=== PATIENT | female | born 1980 | race African-American/Black ===

== ENCOUNTER 2020-05-12 15:04 | Emergency (ER) | payer OTHER ==
--- NOTE | 2020-05-12 17:13 | EDPHYS ---
Physician Documentation [facility] Name: Marjan Griffith Age: 39 yrs Sex: Female : 1980 Arrival Date: 05/12/2020 Time: 15:08 Bed 11 Private MD: ED Physician Jose Fu HPI: 05/12 17:10 This 39 yrs old Black Female presents to ER via Ambulatory with complaints of Sinus kb Congestion. 17:10 The patient or guardian reports The patient or guardian reports sinus congestion and kb pain, rhinorrhea, fever. Onset: The symptoms/episode began/occurred 3 day(s) ago. Severity of symptoms: At their worst the symptoms were moderate, in the emergency department the symptoms are unchanged. Modifying factors: The symptoms are alleviated by nothing, the symptoms are aggravated by nothing. Associated signs and symptoms: Pertinent positives: fever, rhinorrhea, Pertinent negatives: chest pain, diarrhea, ear ache, nausea, sore throat, vomiting. The patient has not experienced similar symptoms in the past. The patient has not recently seen a physician. Pt states she thought she had a sinus infection. c/o headache, fever, sinus pain and congestion, runny nose. States she found out today that someone she was with last weekend is positive for COVID. . Historical: - Allergies: 15:17 Daypro; ll1 - PSHx: 15:17 None; ll1 - Immunization history:: Flu vaccine is not up to date. - Social history:: Smoking status: Patient denies any tobacco usage or history of. Patient uses alcohol, only on a social basis. Patient/guardian denies using street drugs. ROS: 17:08 Cardiovascular: Negative for chest pain, palpitations, and edema, Respiratory: Negative kb for shortness of breath, cough, wheezing, and pleuritic chest pain, Abdomen/GI: Negative for abdominal pain, nausea, vomiting, diarrhea, and constipation, Back: Negative for injury and pain, MS/Extremity: Negative for injury and deformity, Skin: Negative for injury, rash, and discoloration. 17:08 Constitutional: Positive for body aches, chills, fatigue, fever, malaise. 17:08 ENT: Positive for rhinorrhea, sinus congestion, sinus pain. 17:08 Neuro: Positive for headache. Exam: 17:08 Constitutional: This is a well developed, well nourished patient who is awake, alert, kb and in no acute distress. Head/Face: Normocephalic, atraumatic. Neck: Trachea midline, no thyromegaly or masses palpated, and no cervical lymphadenopathy. Supple, full range of motion without nuchal rigidity, or vertebral point tenderness. No Meningismus. Chest/axilla: Normal chest wall appearance and motion. Nontender with no deformity. No lesions are appreciated. Cardiovascular: Regular rate and rhythm with a normal S1 and S2. No gallops, murmurs, or rubs. Normal PMI, no JVD. No pulse deficits. Respiratory: Lungs have equal breath sounds bilaterally, clear to auscultation and percussion. No rales, rhonchi or wheezes noted. No increased work of breathing, no retractions or nasal flaring. Abdomen/GI: Soft, non-tender, with normal bowel sounds. No distension or tympany. No guarding or rebound. No evidence of tenderness throughout. Back: No spinal tenderness. No costovertebral tenderness. Full range of motion. Skin: Warm, dry with normal turgor. Normal color with no rashes, no lesions, and no evidence of cellulitis. MS/ Extremity: Pulses equal, no cyanosis. Neurovascular intact. Full, normal range of motion. Neuro: Awake and alert, GCS 15, oriented to person, place, time, and situation. Cranial nerves II-XII grossly intact. Motor strength 5/5 in all extremities. Sensory grossly intact. Cerebellar exam normal. Normal gait. Vital Signs: 15:16 BP 125 / 94; Pulse 98; Resp 18; Temp 98.3; Pulse Ox 100% ; Pain 8/10; ll1 MDM: 16:44 Patient medically screened. kb 17:04 Data reviewed: vital signs, nurses notes. Data interpreted: Pulse oximetry: on room air kb is 100 %. Interpretation: normal. Counseling: I had a detailed discussion with the patient and/or guardian regarding: the historical points, exam findings, and any diagnostic results supporting the discharge/admit diagnosis, the need for outpatient follow up, a family practitioner, to return to the emergency department if symptoms worsen or persist or if there are any questions or concerns that arise at home. 05/12 17:05 Order name: SANTOS pj Administered Medications: No medications were administered Disposition: 19:35 Co-signature as Attending Physician, Jose Fu MD. [email or web address] Disposition: 05/12/20 17:12 Discharged to Home. Impression: Acute sinusitis. - Condition is Stable. - Discharge Instructions: Sinusitis, Adult, [id number], COVID-19. - Medication Reconciliation Form, Thank You Letter, Antibiotic Education, Prescription Opioid Use form. - Follow up: Emergency Department; When: As needed; Reason: Worsening of condition. Follow up: Private Physician; When: 2 - 3 days; Reason: Recheck today's complaints, Continuance of care, Re-evaluation by your physician. Addendum: 05/15/2020 08:35 Addendum: Contacted pt at 0835, notified of positive COVID test, answered questions, r n [facility] will contact them with further instructions, patient feeling better. . Signatures: Dispatcher [employer] EDMS Nany Green, UPSETTER HELPER-C UPSETTER HELPER-Ckb Karlo Hoff MD MD rn Smirch, Shelby, RN RN ss Lewis, Lynsay, RN RN [facility] Jose Fu MD MD 7 Corrections: (The following items were deleted from the chart) 05/12 17:30 17:12 05/12/2020 17:12 Discharged to Home. Impression: Acute sinusitis. Condition is ss Stable. Forms are Medication Reconciliation Form, Thank You Letter, Antibiotic Education, Prescription Opioid Use. Follow up: Emergency Department; When: As needed; Reason: Worsening of condition. Follow up: Private Physician; When: 2 - 3 days; Reason: Recheck today's complaints, Continuance of care, Re-evaluation by your physician. kb
--- NOTE | 2020-05-12 17:13 | ER ---
Nurse's Notes [facility] Name: Marjan Griffith Age: 39 yrs Sex: Female : 1980 Arrival Date: 05/12/2020 Time: 15:08 Bed 11 Private MD: Diagnosis: Acute sinusitis Presentation: 05/12 15:16 Chief complaint: Patient states: Nasal congestion, MCGREGOR, fever for 4 days. Fever 101 at ll1 home. No N/V/D. Coronavirus screen: Surgical mask placed on patient. Patient moved to private room, placed in contact and droplet isolation with eye protection until further assessment. Patient denies a cough. Patient denies shortness of breath or difficulty breathing. Patient reports a measured and/or subjective temperature greater than 100.4F. Patient denies travel on a cruise ship or to a country the [facility] currently lists as an affected area. Patient reports contact with known and/or suspected case of COVID-19. Ebola Screen: Patient denies travel to an Ebola-affected area in the 21 days before illness onset. Initial Sepsis Screen: Does the patient meet any 2 criteria? HR > 90 bpm. No. Patient's initial sepsis screen is negative. Risk Assessment: Do you want to hurt yourself or someone else? Patient reports no desire to harm self or others. Onset of symptoms was May 09, 2020. 15:16 Method Of Arrival: Ambulatory ll1 15:16 Acuity: GABRIELLA 3 ll1 Historical: - Allergies: 15:17 Daypro; ll1 - PSHx: 15:17 None; ll1 - Immunization history:: Flu vaccine is not up to date. - Social history:: Smoking status: Patient denies any tobacco usage or history of. Patient uses alcohol, only on a social basis. Patient/guardian denies using street drugs. Screenin:45 Abuse screen: Denies threats or abuse. Denies injuries from another. Nutritional ss screening: No deficits noted. Tuberculosis screening: Never had TB. Fall Risk None identified. Assessment: 16:45 General: Appears in no apparent distress. comfortable, Behavior is calm, cooperative, ss Reports fever for 12-24 hours, feeling ill for 12-24 hours, Denies fatigue, chills. Pain: Complains of pain in headache Pain currently is 8 out of 10 on a pain scale. Quality of pain is described as aching. Neuro: Level of Consciousness is awake, alert, obeys commands, Oriented to person, place, time, situation. Cardiovascular: Capillary refill < 3 seconds is brisk in bilateral fingers. Respiratory: Airway is patent Respiratory effort is even, unlabored, Respiratory pattern is regular, symmetrical. GI: Patient currently denies diarrhea, nausea, vomiting. EENT: Reports nasal congestion. Derm: Skin is pink, warm \T\ dry. normal. Musculoskeletal: Circulation, motion, and sensation intact. Range of motion: intact in all extremities, Swelling absent. Vital Signs: 15:16 BP 125 / 94; Pulse 98; Resp 18; Temp 98.3; Pulse Ox 100% ; Pain 8/10; ll1 ED Course: 15:08 Patient arrived in ED. mr 15:17 Triage completed. ll1 15:18 Arm band placed on. ll1 15:18 Patient notified of wait time. ll1 16:43 Majo Knott RN is Primary Nurse. sv 16:44 Nany Green FNP-C is [facility]. kb 16:44 Jose Fu MD is Attending Physician. kb 16:45 Patient has correct armband on for positive identification. Bed in low position. Call ss light in reach. 17:29 No provider procedures requiring assistance completed. Patient did not have IV access ss during this emergency room visit. 05/13 14:50 Health Dept notified/ PUI # [id number]/ Michaelle in lab notified. eb Administered Medications: No medications were administered Outcome: 05/12 17:12 Discharge ordered by MD. kb 17:29 Discharged to home ambulatory. ss 17:29 Condition: good 17:29 Discharge instructions given to patient, Instructed on discharge instructions, follow up and referral plans. Demonstrated understanding of instructions, follow-up care. 17:30 Patient left the ED. ss Signatures: Nany Green FNP-C FNP-Majo Tejeda RN RN sv Katherine Hay Andria Harris RN RN ss Botello, Elizabeth eb Lewis, Lynsay, RN RN ll1
--- OUTSIDE RECORDS SUMMARY | 2020-05-12 17:23 | XMS REPORT | Continuity of Care Document ---
:1980 Author Organization [facility] [employer] Care Team Providers Name Role Phone [email or web address] Unavailable Un available Problems Problem Status Onset Classification Date Comments Sourc e Date Reported DX: Active Lenora st R10.11=RIGHT 9 UPPER QUADRANT PAIN, K5 Medications No Data Provided for This Section Allergies, Adverse Reactions, Alerts No Known Medication Allergies Immunizations No Data Provided for This Section Results No Data Provided for This Section Pathology Reports No Data Provided for This Section Diagnostic Reports Report Value Date Source Gallbladder scan HIDA w PROCEDURE INFORMATION: 12/04/2019 [facility] Exam: NM Hepatobiliary scan including gallbladder ejection fraction with pharmacological intervention Exam date and time: 12/04/2019 12:01 PM Age: 39 years old Clinical indication: Right upper quadrant pain a nd bloating for 3 months. TECHNIQUE: 7.2 mCi of technetium 99 M Choletec were injecte d intravenously followed by anterior planar imaging over the upper abdomen. 1.8 mcg of cholecystokinin were then given intravenously over 30 minutes followed by quantitative imaging over the gallbladder. The patient described mild righ t upper quadrant cramping during the cholecystokinin infusion. COMPARISON: No relevant prior studies available. FINDINGS: There is prompt uptake and excretion of activity by the liver with prompt visualization of the biliary tree, gallbladder and small bowel. The gallbladder ejection fraction is 87%. IMPRESSION: 1. 87% gallbladder ejection fraction. 2. Otherwise normal hepatobiliary scan. Ruddy Jha MD On 12/04/2019 13:11:41; FER-KO [id number] Consultation Notes No Data Provided for This Section Discharge Summaries No Data Provided for This Section History and Physicals No Data Provided for This Section Vital Signs No Data Provided for This Section Encounters Location Location Encounter Encounter Reason Attending ADM [place] Stat us Source Details Type Number For Provider Date Date [facility] [id number] Alec 12/04 12/05 ABDIEL Cristina /2019 [facility] Procedures No Data Provided for This Section Assessment and Plan No Data Provided for This Section Plan of Care No Data Provided for This Section Social History Social History Date Source Social History TypeResponse 12/05/2019 [facility] Family History No Data Provided for This Section Advance Directives No Data Provided for This Section Functional Status No Data Provided for This Section
--- OUTSIDE RECORDS SUMMARY | 2020-05-12 17:24 | XMS REPORT | Continuity of Care Document ---
:1980 Author Organization [facility] t Address [address] [place] [address] Care Team Providers Name Role Phone Jonnie Attending Clinician Problems Condition Condition Condition Status Onset Resolution Last Treating Co mments Source Name Details Category Date Date Treatment Clinician Date DX: Diagnosis Active 2018-112019-12-04 Mem oria R10.11=RIG 2-09 06:49:00 l HT UPPER DX: 00:00: [place] QUADRANT R10.11=RIG 00 PAIN, K5 HT UPPER QUADRANT PAIN, K5 Active 10/26/2019 [facility] Allergies, Adverse Reactions, Alerts This patient has no known allergies or adverse reactions. Medications This patient has no known medications. Procedures This patient has no known procedures. Encounters Start End Encounter Admission Attending Care Care Encounter Source Date/Time Date/Time Type Type Clinicians Facility Department ID 2019-12-04 2019-12-04 Outpatient TONIO Cristina [facility] [id number] 06:40:00 23:59:00 Alec 00 2019-12-04 2019-12-04 Outpatient [facility] [id number] MH 06:40:00 06:40:00 Pamela mahoney [facility] l Results This patient has no known results.
[2020-05-12 18:00] VITALS: BP 125/94; TEMP 98.3; O2SAT 100
== END 2020-05-12 17:30 | disposition home or self-care (01) ==
LOC: ER 15:04
DX: U07.1 COVID-19 (principal); J01.90 Acute sinusitis, unspecified; Z88.8 Allergy status to other drugs, medicaments and biological substances
CPT/HCPCS: 99281; U0001

== ENCOUNTER 2022-12-27 08:10 | Emergency (ER) | payer OTHER ==
--- OUTSIDE RECORDS SUMMARY | 2022-12-27 08:13 | XMS REPORT | Continuity of Care Document ---
:1980 Author Organization [facility] t Address [address] [place] [address] Care Team Providers Name Role Phone Alec Cristina Attending Clinician Problems Condition Condition Condition Status Onset Resolution Last Treating Co mments Source Name Details Category Date Date Treatment Clinician Date DX: DX: Diagnosis Active 2018-112019-12-04 Mem oria R10.11=RIG R10.11=RIG 2-09 06:49:00 l HT UPPER HT UPPER 00:00: [facility] QUADRANT QUADRANT 00 PAIN, K5 PAIN, K5 Active 10/26/2019 [facility] Allergies, Adverse Reactions, Alerts This patient has no known allergies or adverse reactions. Medications This patient has no known medications. Procedures This patient has no known procedures. Encounters Start End Encounter Admission Attending Care Care Encounter Source Date/Time Date/Time Type Type Clinicians Facility Department ID 2019-12-04 2019-12-05 Outpatient Counts include 234 beds at the [facility] [id number] Memoria 12:40:00 05:59:00 r [facility] 2019-12-04 2019-12-04 Outpatient TONIO Cristina [facility] [id number] 06:40:00 23:59:00 Alec 00 2019-12-04 2019-12-04 Outpatient [facility] [id number] MH 06:40:00 06:40:00 [facility] l Results This patient has no known results.
[2022-12-27] MEDS ORDERED: NA CHLORIDE 0.9% 1,000 ML ONE (08:41)
[2022-12-27 08:49] LABS: Absolute Lymphocytes (CBC) 2.2 K/uL (0.7-4.9); Hematocrit 34.8 % (36.0-45.0); Lymphocytes % 31.6 % (15.3-44.8); MCV 86.8 fL (80-100); MPV 8.3 fL (7.6-11.3); RBC Red Blood Cell Count 4.01 M/uL (3.86-4.86)
[2022-12-27 08:49] LABS: Urine Blood Negative (Negative); Urine Glucose Negative (Negative); Urine Protein Negative (Negative); Urine Specific Gravity 1.015 (1.005-1.030); Urine pH 5.5 (5.0-7.0)
[2022-12-27 08:57] LABS: Urine Bacteria None Seen /HPF (<20); Urine Mucus Slight /HPF (None Seen); Urine RBC <5 /HPF (None Seen)
[2022-12-27 09:04] LABS: Albumin 3.1 g/dL (3.4-5.0); Bilirubin Total 0.2 mg/dL (0.2-1.0); Potassium 3.6 mmol/L (3.5-5.1); Protein, Total 7.2 g/dL (6.4-8.2)
[2022-12-27 09:05] LABS: Urine Specific Gravity/Preg 1.015 (1.005-1.030)
--- NOTE | 2022-12-27 10:10 | RAD REPORT ---
EXAM DESCRIPTION: CT - Abdomen Pelvis W Contrast - 12/27/2022 9:56 am CLINICAL HISTORY: Right lower quadrant abdominal pain. History of positive test 2 weeks ag o, blood were negative. Fibroids on recent ultrasound. COMPARISON: Pelvic ultrasound 12/19/2022 TECHNIQUE: Biphasic, helical CT imaging of the abdomen and pelvis was performed following administra tion of 110 mL split dose Isovue-[address] scans are performed using dose optimization technique as appropriate and may include automated exposure control or mA/KV adjustment according to patient size. FINDINGS: No suspicious findings in the lung bases. The liver, spleen, and pancreas show no suspicious findings. Gallbladder and biliary tree are also wi thout suspicious finding. Symmetric renal contour is seen with no hydronephrosis or suspicious renal mass. Evaluation for renal calculi is limited given early excretion of contrast throughout the urinary tract. No dilated bowel loops or bowel wall thickening. No free air, free fluid or inflammatory stranding. T he appendix is visualized and unremarkable. No hernia, mass or bulky lymphadenopathy. The urinary freeman dder is without significant finding. Bulky contour of the uterus particularly along the posterior wall. Known uterine fibroids were better evaluated on the recent pelvic ultrasound. No suspicious bony findings. IMPRESSION: Bulky contour of the uterus particularly along the posterior wall, related to known fibr oids better evaluated on recent pelvic ultrasound. No other acute or suspicious findings within the abdomen and pelvis.
--- NOTE | 2022-12-27 10:22 | ER ---
Nurse's Notes [facility] Name: Marjan Griffith Age: 42 yrs Sex: Female : 1980 Arrival Date: 12/27/2022 Time: 08:12 Bed 8 Private MD: Diagnosis: Lower abdominal pain, unspecified Presentation: 12/27 08:21 Chief complaint: Patient states: "I had a positive test a couple weeks ago aa5 but then they did the blood work test and it was negative, I also had an ultrasound and my doctor just said it showed fibroids". pt c/o RLQ pain that began this morning, reports nausea, denies vomiting. Denies vaginal bleeding. 08:21 Coronavirus screen: At this time, the client does not indicate any symptoms associated aa5 with coronavirus-19. Ebola Screen: Patient denies travel to an Ebola-affected area in the 21 days before illness onset. Initial Sepsis Screen: Does the patient meet any 2 criteria? HR > 90 bpm. Does the patient have a suspected source of infection? No. Patient's initial sepsis screen is negative. Risk Assessment: Do you want to hurt yourself or someone else? Patient reports no desire to harm self or others. Onset of symptoms was December 2022. 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 - Social history:: Smoking status: Patient denies any tobacco usage or history of. Screenin:30 [facility] ED Fall Risk Assessment (Adult) History of falling in the last 3 months, kc6 including since admission No falls in past 3 months (0 pts) Confusion or Disorientation No (0 pts) Intoxicated or Sedated No (0 pts) Impaired Gait No (0 pts) Mobility Assist Device Used No (0 pt) Altered Elimination No (0 pt) Score/Fall Risk Level 0 - 2 = Low Risk Oriented to surroundings, Maintained a safe environment, Educated pt \\T\\ family on fall prevention, incl call for assistance when getting out of bed, Assessed \\T\\ reinforced patient's understanding of fall precautions, Hourly rounding (assess needs \\T\\ fall precautionary measures) done. Abuse screen: Denies threats or abuse. Denies injuries from another. Nutritional screening: No deficits noted. Tuberculosis screening: No symptoms or risk factors identified. Assessment: 08:28 General: Appears in no apparent distress. comfortable, Behavior is calm, cooperative, kc6 appropriate for age. Pain: Complains of pain in right lower quadrant Pain does not radiate. Pain currently is 4 out of 10 on a pain scale. Quality of pain is described as sharp, Is continuous, Alleviated by nothing. Also complains of no other associated symptoms. Neuro: Mixon Agitation-Sedation Scale (RASS): 0 - Alert and Calm Level of Consciousness is awake, alert, obeys commands, Oriented to person, place, time, situation, Appropriate for age. Cardiovascular: Capillary refill < 3 seconds. Respiratory: Airway is patent Trachea midline Respiratory effort is even, unlabored, Respiratory pattern is regular, symmetrical. GI: Abdomen is flat, non-distended, Bowel sounds present X 4 quads. Abd is soft X 4 quads Abdomen is tender to palpation in right lower quadrant Reports nausea, Patient currently denies diarrhea, vomiting. : No signs and/or symptoms were reported regarding the genitourinary system. EENT: No signs and/or symptoms were reported regarding the EENT system. Derm: No signs and/or symptoms reported regarding the dermatologic system. Skin is intact, Skin is pink, warm \\T\\ dry. Musculoskeletal: No signs and/or symptoms reported regarding the musculoskeletal system. Circulation, motion, and sensation intact. Capillary refill < 3 seconds, Range of motion: intact in all extremities. 09:28 Reassessment: Patient appears in no apparent distress at this time. No changes from kc6 previously documented assessment. Patient and/or family updated on plan of care and expected duration. Pain level reassessed. Patient is alert, oriented x 3, equal unlabored respirations, skin warm/dry/pink. 10:28 Reassessment: Patient appears in no apparent distress at this time. No changes from kc6 previously documented assessment. Patient and/or family updated on plan of care and expected duration. Pain level reassessed. Patient is alert, oriented x 3, equal unlabored respirations, skin warm/dry/pink. Vital Signs: 08:21 BP 131 / 78; Pulse 94; Resp 16 S; Temp 99.0(TE); Pulse Ox 99% on R/A; Weight 98.43 kg aa5 (R); Height 5 ft. 6 in. (167.64 cm) (R); 09:15 BP 146 / 90; Pulse 89; Resp 18 S; Pulse Ox 100% ; kc6 08:21 Body Mass Index 35.02 (98.43 kg, 167.64 cm) aa5 ED Course: 08:12 Patient arrived in ED. am2 08:21 Juan Madsen PA is PHCP. cp 08:21 Manoj Austin MD is Attending Physician. cp 08:21 Zarina Doty, NELLIE is Primary Nurse. kc6 08:21 Arm band placed on. aa5 08:30 Triage completed. aa5 08:30 Patient has correct armband on for positive identification. Bed in low position. Call kc6 light in reach. Side rails up X 1. Adult w/ patient. 08:38 Inserted saline lock: 20 gauge in left antecubital area, using aseptic technique. kc6 ,using aseptic technique. placed by Margaret Kevin RN Blood collected. 08:48 Quantitative Hcg Sent. kc6 08:49 CBC with Diff Sent. kc6 08:49 CMP Sent. kc6 08:49 Lipase Sent. kc6 08:49 Urine Microscopic Only Sent. kc6 09:58 CT Abd/Pelvis - IV Contrast Only In Process Unspecified. EDMS 11:03 No provider procedures requiring assistance completed. IV discontinued, intact, kc6 bleeding controlled, No redness/swelling at site. Pressure dressing applied. Administered Medications: 08:48 Drug: NS 0.9% 1000 ml Route: IV; Rate: 1 bolus; Site: left antecubital; kc6 10:41 Follow up: Response: No adverse reaction; IV Status: Completed infusion; IV Intake: kc6 1000ml 10:19 Drug: Dicyclomine 20 mg Route: IM; Site: right gluteus; ap3 11:04 Follow up: Response: No adverse reaction kc6 Medication: 11:04 VIS not applicable for this client. kc6 Intake: 10:41 IV: 1000ml; Total: 1000ml. kc6 Outcome: 10:21 Discharge ordered by MD. cp 11:03 Discharged to home ambulatory, with family. kc6 11:03 Condition: stable 11:03 Discharge instructions given to patient, Instructed on discharge instructions, follow up and referral plans. Demonstrated understanding of instructions, follow-up care. 11:04 Patient left the ED. kc6 Signatures: Dispatcher [employer] EDMS Julieth Hinkle RN RN aa5 Juan Madsen PA PA cp Moreno, Amanda am2 Prokisch, Amanda, RN RN ap3 Zarina Doty RN RN kc6 Corrections: (The following items were deleted from the chart) 08: 08:30 PMHx: None; aa5 aa5
--- NOTE | 2022-12-27 10:22 | EDPHYS ---
Physician Documentation [facility] Name: Marjan Griffith Age: 42 yrs Sex: Female : 1980 Arrival Date: 12/27/2022 Time: 08:12 Bed 8 Private MD: ED Physician Manoj Austin HPI: 12/27 08:40 This 42 yrs old Black Female presents to ER via Ambulatory with complaints of Abdominal cp Pain - RLQ sharp. 08:40 The patient presents with abdominal pain right lower quadrant. Onset: The cp symptoms/episode began/occurred this morning. The symptoms radiate to the right flank. Associated signs and symptoms: Pertinent negatives: constipation, diarrhea, dysuria, fever, hematuria. 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 - Social history:: Smoking status: Patient denies any tobacco usage or history of. ROS: 08:45 Constitutional: Negative for body aches, chills, fever, poor PO intake. cp 08:45 Cardiovascular: Negative for chest pain, edema, palpitations. cp 08:45 Respiratory: Negative for cough, shortness of breath, wheezing. 08:45 Abdomen/GI: Positive for abdominal pain, of the suprapubic area and right lower quadrant and right flank, Negative for vomiting, diarrhea, constipation. 08:45 : Negative for urinary symptoms. 08:45 Neuro: Negative for altered mental status, dizziness, headache, numbness, syncope, weakness. 08:45 All other systems are negative. Exam: 08:50 Constitutional: The patient appears in no acute distress, alert, awake, comfortable, cp non-toxic, well developed, well nourished. 08:50 Head/Face: Normocephalic, atraumatic. cp 08:50 Eyes: Periorbital structures: appear normal, Conjunctiva: normal, no exudate, no injection, Sclera: no appreciated abnormality, Lids and lashes: appear normal, bilaterally. 08:50 ENT: External ear(s): are unremarkable, Nose: is normal, Mouth: Lips: moist, Oral mucosa: pink and intact, moist, Posterior pharynx: is normal, airway is patent, no erythema, no exudate. 08:50 Chest/axilla: Inspection: normal. 08:50 Cardiovascular: Rate: normal, Rhythm: regular. 08:50 Respiratory: the patient does not display signs of respiratory distress, Respirations: normal, no use of accessory muscles, no retractions, labored breathing, is not present, Breath sounds: are clear throughout, no decreased breath sounds, no stridor, no wheezing. 08:50 Abdomen/GI: Inspection: abdomen appears normal, Bowel sounds: active, all quadrants, Palpation: soft, in all quadrants, mild abdominal tenderness, in the suprapubic area and right lower quadrant, rebound tenderness, is not appreciated, involuntary guarding, is not appreciated. 08:50 Back: CVA tenderness, is absent. Vital Signs: 08:21 BP 131 / 78; Pulse 94; Resp 16 S; Temp 99.0(TE); Pulse Ox 99% on R/A; Weight 98.43 kg aa5 (R); Height 5 ft. 6 in. (167.64 cm) (R); 09:15 BP 146 / 90; Pulse 89; Resp 18 S; Pulse Ox 100% ; kc6 08:21 Body Mass Index 35.02 (98.43 kg, 167.64 cm) aa5 MDM: 08:22 Patient medically screened. cp 09:00 Differential diagnosis: appendicitis, bowel obstruction, cholecystitis, Cholelithiasis, cp diverticulitis, non-specific abd pain, Pyelonephritis, Ureterolithiasis, urinary tract infection. 10:20 Data reviewed: vital signs, nurses notes, lab test result(s), radiologic studies, CT cp scan. 10:20 Consideration of Admission/Observation Escalation of care including cp admission/observation considered. Test considered but Not performed: Ultrasound pelvis. Care significantly affected by the following chronic conditions: Hypertension. Counseling: I had a detailed discussion with the patient and/or guardian regarding: the historical points, exam findings, and any diagnostic results supporting the discharge/admit diagnosis, lab results, radiology results, the need for outpatient follow up, an OB/Gyne specialist, to return to the emergency department if symptoms worsen or persist or if there are any questions or concerns that arise at home. Response to treatment: the patient's symptoms have markedly improved after treatment, and as a result, I will discharge patient. Special discussion: Based on the patient's Hx, exam, and Dx evaluation, there is no indication for emergent surgery or inpatient Tx. It is understood by the patient/guardian that if the Sx's persist or worsen they need to return immediately for re-evaluation. 12/27 08:34 Order name: CBC with Diff; Complete Time: 09:17 cp 12/27 10:12 Interpretation: Normal except: HGB 11.6; HCT 34.8. cp 12/27 08:34 Order name: CMP; Complete Time: 09:17 cp 12/27 10:12 Interpretation: Normal except: CL 109; GLUC 115; ALB 3.1; GLOB 4.1; A/G 0.8. cp 12/27 08:34 Order name: Lipase; Complete Time: 09:17 cp 12/27 08:34 Order name: Urine Microscopic Only; Complete Time: 09:17 cp 12/27 08:34 Order name: Quantitative Hcg; Complete Time: 09:17 cp 12/27 08:50 Order name: Urine Dipstick-Ancillary; Complete Time: 09:17 EDMS 12/27 10:12 Interpretation: Normal except: UESTR 1+. cp 12/27 08:34 Order name: IV Saline Lock; Complete Time: 08:38 cp 12/27 08:34 Order name: Labs collected and sent; Complete Time: 08:48 cp 12/27 08:34 Order name: Urine Dipstick-Ancillary (obtain specimen); Complete Time: 08:48 cp 12/27 08:34 Order name: Urine Test (obtain specimen); Complete Time: 08:49 cp 12/27 09:02 Order name: Urine --Ancillary (enter results); Complete Time: 09:17 em1 12/27 09:19 Order name: CT Abd/Pelvis - IV Contrast Only; Complete Time: 10:11 cp 12/27 10:12 Interpretation: Report reviewed. cp Administered Medications: 08:48 Drug: NS 0.9% 1000 ml Route: IV; Rate: 1 bolus; Site: left antecubital; kc6 10:41 Follow up: Response: No adverse reaction; IV Status: Completed infusion; IV Intake: kc6 1000ml 10:19 Drug: Dicyclomine 20 mg Route: IM; Site: right gluteus; ap3 11:04 Follow up: Response: No adverse reaction kc6 Disposition: 11:27 Co-signature as Attending Physician, Manoj Austin MD I reviewed the patient's care rt provided by the Advanced Practice Provider and agree with the diagnosis and treatment plan. Disposition Summary: 12/27/22 10:21 Discharge Ordered Location: Home cp Problem: new cp Symptoms: have improved cp Condition: Stable cp Diagnosis - Lower abdominal pain, unspecified cp Followup: cp - With: Private Physician - When: 1 - 2 days - Reason: Worsening of condition Discharge Instructions: - Discharge Summary Sheet cp - Abdominal Pain, Adult cp - Uterine Fibroids cp Forms: - Medication Reconciliation Form cp - Thank You Letter cp - Antibiotic Education cp - Prescription Opioid Use cp Signatures: Dispatcher [employer] Julieth Singh RN RN aa5 Juan Madsen PA PA cp Kanika Kyle RN RN ap3 Zarina Doty RN RN kc6 Manoj Austin MD MD rt Corrections: (The following items were deleted from the chart) 08:31 08:30 PMHx: None; aaDorcas aa5
[2022-12-27 11:15] VITALS: TEMP 99
[2022-12-27 11:21] VITALS: BP 146/90; O2SAT 100
== END 2022-12-27 11:04 | disposition home or self-care (01) ==
LOC: ER 08:10
DX: R10.31 Right lower quadrant pain (principal); I10 Essential (primary) hypertension; Z88.8 Allergy status to other drugs, medicaments and biological substances
CPT/HCPCS: 96361; 85025; 36415; 81025; 84702; 83690; 80053; 74177; 96360; 96372; 99284; Q9967; J7030; 81003; 81015